=== PATIENT | male | born 1985 | race Caucasian/White ===

== ENCOUNTER 2020-06-13 16:24 | Emergency (ER) | payer OTHER ==
[~2020-06-13] VITALS: Ht 167.6 cm; Wt 68.2 kg
[2020-06-13 18:34] VITALS: BP 108/78
== END 2020-06-13 18:40 | disposition home or self-care (01) ==
LOC: EMS 16:24
DX: F15.10 Other stimulant abuse, uncomplicated (principal)
CPT/HCPCS: 99283; Z7502